=== PATIENT | male | born 1930 | race Caucasian/White ===

== ENCOUNTER 2021-01-26 03:41 | Inpatient (IN) ==
[2021-01-26] MEDS ORDERED: FUROSEMIDE 100 MG/10 ML VIAL IV STA (04:29)
[2021-01-26] MEDS ORDERED: ONDANSETRON 4 MG/2 ML VIAL IV STA (04:29)
[2021-01-26 05:42] LABS: INR 1.2; PT Patient Result 12.8 SECS (10.5-12.0)
[2021-01-26 06:00] LABS: Albumin 2.2 G/DL (3.4-5.0); Bilirubin,Total 0.5 MG/DL (0.20-1.00); Calcium 8.8 MG/DL (8.5-10.1); Osmolality,Calculated 282.5 MOS/KG (273-304); Potassium 3.6 MMOL/L (3.5-5.1); Total Protein 5.2 G/DL (6.4-8.2)
[2021-01-26 06:17] LABS: Hematocrit 26.6 VOL% (42.0-52.0); Hemoglobin 8.7 GM/DL (14.0-18.0); Immature Granulocytes % 7.5 %; Immature Granulocytes Absolute 0.07 #; Lymphocytes # 0.1 10*3/uL (1.4-4.0); Lymphocytes % 12.9 % (21.2-54.2); Mean Corpuscular HGB Conc 32.7 GM/DL (32-36); Neutrophils % 65.6 % (38.7-73.9); Red Blood Count 3.13 MC/CUMM (3.8-5.5); Red Cell Distribution Width 16.4 % (9.3-17.3)
[2021-01-26 06:21] LABS: White Blood Count 0.9 T/CUMM (4-12)
[2021-01-26 06:22] LABS: Platelet Count 35 T/CUMM (130-400)
[2021-01-26 06:28] LABS: Amorphous Crystals,Urine Moderate /HPF (Few); Bilirubin,Urine Negative (Negative); Blood, Urine Negative (Negative); Glucose,Urine (UA) Negative (Negative); Ketones,Urine Negative (Negative); Mucus,Urine Occasional /LPF (Occasional); Nitrite,Urine Negative (Negative); Protein,Urine Negative; Urine Appearance CLEAR (Clear); Urine Color Yellow (Yellow); Urine Specific Gravity 1.009 (1.001-1.035); Urine Urobilinogen < 2.0 EU/DL (0.2-1.0)
[2021-01-26 06:43] LABS: Band Neutrophils 1 % (0-10); Eosinophils 1 % (0-10); Hypochromasia Slight; Lymphocytes 9 % (20-55); Platelet Estimate Decreased; Segmented Neutrophils 79 % (50-85); Total Cells Counted 100
[2021-01-26] MEDS ORDERED: ONDANSETRON 4 MG/2 ML VIAL IV PRN (10:32)
[2021-01-26] MEDS ORDERED: GLUCAGON 1 MG VIAL IM PRN (10:32)
[2021-01-26] MEDS ORDERED: DEXTROSE 50% 25 GM/50 ML VIAL IV PRN (10:32)
[2021-01-26] MEDS: carvediloL 3.125 MG TABLET PO SCH (17:05)
[2021-01-26] MEDS: FUROSEMIDE 40 MG/4 ML VIAL IV SCH (17:06)
[2021-01-26] MEDS: ALBUMIN 25% 12.5 GM/50 ML VIAL IV SCH (21:48)
[2021-01-27] MEDS: ACETAMINOPHEN 325 MG TABLET PO PRN ×2 (01:37→16:08)
[2021-01-27 05:56] LABS: Immature Granulocytes % 6.7 %; Immature Granulocytes Absolute 0.07 #; Lymphocytes # 0.1 10*3/uL (1.4-4.0); Lymphocytes % 7.7 % (21.2-54.2); Mean Corpuscular HGB Conc 33.5 GM/DL (32-36); Mean Corpuscular Volume 84.8 FL (87-102); Neutrophils % 61.6 % (38.7-73.9); Red Cell Distribution Width 16.5 % (9.3-17.3)
[2021-01-27 06:03] LABS: Alanine Aminotransferase 46 U/L (16-61); Alkaline Phosphatase 172 U/L (45-117); Aspartate Amino Transferase 77 U/L (0-37); Blood Urea Nitrogen 58 MG/DL (7-18); Calcium 8.3 MG/DL (8.5-10.1); Carbon Dioxide 22 MMOL/L (21-32); Estimated Glom Filtration Rate 20 ML/MIN; Glucose 98 MG/DL (74-106); HDL Cholesterol < 10 MG/DL (40-60); Osmolality,Calculated 281.4 MOS/KG (273-304); Potassium 3.4 MMOL/L (3.5-5.1); Sodium 133 MMOL/L (136-145); Total Protein 4.6 G/DL (6.4-8.2); Triglycerides 204 MG/DL (2-150); VLDL Cholesterol 40.8 MG/DL
[2021-01-27 06:08] LABS: Red Blood Count 2.11 MC/CUMM (3.8-5.5)
[2021-01-27 06:10] LABS: Hematocrit 17.9 VOL% (42.0-52.0); Platelet Count 37 T/CUMM (130-400)
[2021-01-27 06:20] LABS: Hypochromasia 2+; Lymphocytes 6 % (20-55); Microcytosis 1+; Platelet Estimate Decreased; Segmented Neutrophils 81 % (50-85); Total Cells Counted 100
[2021-01-27] MEDS ORDERED: SODIUM CHLORIDE 0.9% 1,000 ML IV PRN (06:27)
[2021-01-27] MEDS ORDERED: POTASSIUM CHLORIDE 10 MEQ TABLET PO ONE (09:05)
[2021-01-27 09:38] LABS: % Iron Saturation 25.7 % (18-50)
[2021-01-27] MEDS: ERGOCALCIFEROL 50,000 UNIT CAPSULE PO SCH (09:39)
[2021-01-27] MEDS: PANTOPRAZOLE 40 MG TABLET PO SCH (09:39)
[2021-01-27] MEDS: FINASTERIDE 5 MG TABLET PO SCH (09:39)
[2021-01-27] MEDS: carvediloL 3.125 MG TABLET PO SCH ×2 (09:39→16:08)
[2021-01-27] MEDS: amLODIPine 5 MG TABLET PO SCH (09:42)
[2021-01-27] MEDS: FUROSEMIDE 40 MG/4 ML VIAL IV SCH ×2 (09:44→16:09)
[2021-01-27 09:45] LABS: Folate 10.15 NG/ML (5.38-24.0)
[2021-01-27] MEDS: ALBUMIN 25% 12.5 GM/50 ML VIAL IV SCH ×2 (09:54→21:56)
[2021-01-27 21:36] LABS: Hematocrit 22.6 VOL% (42.0-52.0)
[2021-01-27 21:39] LABS: Hemoglobin 7.5 GM/DL (14.0-18.0)
[2021-01-28] MEDS: ACETAMINOPHEN 325 MG TABLET PO PRN ×2 (02:11→16:01)
[2021-01-28 05:41] LABS: Hemoglobin 7.7 GM/DL (14.0-18.0); Immature Granulocytes % 20.7 %; Immature Granulocytes Absolute 0.29 #; Lymphocytes # 0.1 10*3/uL (1.4-4.0); Lymphocytes % 5.7 % (21.2-54.2); Mean Corpuscular HGB Conc 33.5 GM/DL (32-36); Mean Corpuscular Volume 83.9 FL (87-102); Monocytes % 21.4 % (1.7-12.7); Neutrophils % 52.2 % (38.7-73.9); Red Cell Distribution Width 16.6 % (9.3-17.3)
[2021-01-28 06:06] LABS: Calcium 8.4 MG/DL (8.5-10.1); Osmolality,Calculated 285.2 MOS/KG (273-304); Potassium 3.2 MMOL/L (3.5-5.1)
[2021-01-28 06:22] LABS: Platelet Count 40 T/CUMM (130-400); Red Blood Count 2.74 MC/CUMM (3.8-5.5); White Blood Count 1.4 T/CUMM (4-12)
[2021-01-28 06:29] LABS: Band Neutrophils 2 % (0-10); Hypochromasia 1+; Lymphocytes 5 % (20-55); Microcytosis 1+; Ovalocytes Slight; Platelet Estimate Decreased; Segmented Neutrophils 74 % (50-85); Total Cells Counted 100
[2021-01-28] MEDS: FINASTERIDE 5 MG TABLET PO SCH (08:27)
[2021-01-28] MEDS: PANTOPRAZOLE 40 MG TABLET PO SCH (08:27)
[2021-01-28] MEDS: carvediloL 3.125 MG TABLET PO SCH ×2 (08:28→16:01)
[2021-01-28] MEDS: FUROSEMIDE 40 MG/4 ML VIAL IV SCH ×2 (08:28→16:01)
[2021-01-28] MEDS: amLODIPine 5 MG TABLET PO SCH (08:28)
[2021-01-28] MEDS: ALBUMIN 25% 12.5 GM/50 ML VIAL IV SCH (08:28)
[2021-01-28] MEDS ORDERED: POTASSIUM CHLORIDE 10 MEQ TABLET PO ONE (09:13)
[2021-01-28] MEDS ORDERED: CIPROFLOXACIN 250 MG TABLET PO SCH (21:00)
[2021-01-29] MEDS: ACETAMINOPHEN 325 MG TABLET PO PRN ×4 (00:24→23:40)
[2021-01-29 05:50] LABS: Basophils % 0.6 % (0.0-0.8); Hematocrit 23.8 VOL% (42.0-52.0); Hemoglobin 8.1 GM/DL (14.0-18.0); Immature Granulocytes % 1.8 %; Immature Granulocytes Absolute 0.03 #; Lymphocytes # 0.1 10*3/uL (1.4-4.0); Lymphocytes % 4.9 % (21.2-54.2); Mean Corpuscular Volume 84.4 FL (87-102); Monocytes % 22.1 % (1.7-12.7); Neutrophils % 70.6 % (38.7-73.9); Red Blood Count 2.82 MC/CUMM (3.8-5.5); Red Cell Distribution Width 16.5 % (9.3-17.3); White Blood Count 1.6 T/CUMM (4-12)
[2021-01-29 06:10] LABS: Platelet Count 36 T/CUMM (130-400)
[2021-01-29 06:19] LABS: Calcium 8.4 MG/DL (8.5-10.1); Osmolality,Calculated 284.4 MOS/KG (273-304); Potassium 3.3 MMOL/L (3.5-5.1)
[2021-01-29 06:21] LABS: Band Neutrophils 2 % (0-10); Lymphocytes 1 % (20-55); Platelet Estimate Decreased; Segmented Neutrophils 80 % (50-85); Total Cells Counted 100
[2021-01-29 06:22] LABS: Hypochromasia 1+; Microcytosis 1+; Ovalocytes Slight
[2021-01-29] MEDS ORDERED: POTASSIUM CHLORIDE 20 MEQ TABLET PO ONE (07:59)
[2021-01-29] MEDS ORDERED: HEPARIN 5,000 UNIT/1 ML VIAL ONE (09:12)
[2021-01-29] MEDS: FUROSEMIDE 40 MG/4 ML VIAL IV SCH ×2 (10:24→15:13)
[2021-01-29] MEDS: FINASTERIDE 5 MG TABLET PO SCH (10:25)
[2021-01-29] MEDS: amLODIPine 5 MG TABLET PO SCH (10:25)
[2021-01-29] MEDS: carvediloL 3.125 MG TABLET PO SCH ×2 (10:26→16:28)
[2021-01-29] MEDS: PANTOPRAZOLE 40 MG TABLET PO SCH (10:26)
[2021-01-29] MEDS ORDERED: POTASSIUM CHLORIDE 10 MEQ TABLET PO ONE (11:00)
[2021-01-29] MEDS ORDERED: ALBUTEROL/IPRATROPIUM 3 ML NEB RESP TX STA (11:54)
[2021-01-29] MEDS ORDERED: ALBUTEROL/IPRATROPIUM 3 ML NEB RESP TX PRN (11:55)
[2021-01-29] MEDS: LEVOFLOXACIN INJ 750 MG/150 ML PREMIX IV SCH (15:13)
[2021-01-30] MEDS: ACETAMINOPHEN 325 MG TABLET PO PRN ×3 (04:22→19:59)
[2021-01-30] MEDS ORDERED: PIPERACILLIN/TAZOBACTAM 3,375 MG in SODIUM CHLORIDE 0.9% 100 ML IV SCH (08:00)
[2021-01-30 08:25] LABS: Hematocrit 24.7 VOL% (42.0-52.0); Hemoglobin 8.1 GM/DL (14.0-18.0); Immature Granulocytes Absolute 0.09 #; Lymphocytes # 0.1 10*3/uL (1.4-4.0); Lymphocytes % 4.9 % (21.2-54.2); Mean Corpuscular HGB Conc 32.8 GM/DL (32-36); Mean Corpuscular Volume 84.3 FL (87-102); Monocytes % 18.7 % (1.7-12.7); Neutrophils % 72.4 % (38.7-73.9); Platelet Count 40 T/CUMM (130-400); Red Blood Count 2.93 MC/CUMM (3.8-5.5); Red Cell Distribution Width 16.6 % (9.3-17.3); White Blood Count 2.3 T/CUMM (4-12)
[2021-01-30 08:46] LABS: Calcium 8.1 MG/DL (8.5-10.1); Osmolality,Calculated 290.1 MOS/KG (273-304); Potassium 3.8 MMOL/L (3.5-5.1)
[2021-01-30 08:50] LABS: Band Neutrophils 3 % (0-10); Hypochromasia 1+; Lymphocytes 2 % (20-55); Metamyelocytes 1 %; Segmented Neutrophils 81 % (50-85); Total Cells Counted 100
[2021-01-30 08:51] LABS: Microcytosis 1+; Ovalocytes Slight; Platelet Estimate Decreased
[2021-01-30] MEDS: FUROSEMIDE 40 MG/4 ML VIAL IV SCH ×2 (09:25→17:03)
[2021-01-30] MEDS: POTASSIUM CHLORIDE 10 MEQ TABLET PO SCH (09:25)
[2021-01-30] MEDS: FINASTERIDE 5 MG TABLET PO SCH (09:26)
[2021-01-30] MEDS: carvediloL 3.125 MG TABLET PO SCH ×2 (09:26→17:03)
[2021-01-30] MEDS: amLODIPine 5 MG TABLET PO SCH (09:26)
[2021-01-30] MEDS: PANTOPRAZOLE 40 MG TABLET PO SCH (09:26)
[2021-01-30] MEDS ORDERED: VANCOMYCIN INJ 1,250 MG in SODIUM CHLORIDE 0.9% 250 ML IV ONE (11:00)
[2021-01-30] MEDS: MORPHINE 2 MG/1 ML SYRINGE IV PRN ×2 (12:17→19:54)
[2021-01-30] MEDS ORDERED: VANCOMYCIN INJ 1,250 MG in SODIUM CHLORIDE 0.9% 250 ML IV PRN (12:44)
[2021-01-30] MEDS ORDERED: LACTULOSE 20 GM/30 ML UDCUP PO PRN (16:06)
[2021-01-30] MEDS: DOCUSATE SODIUM 100 MG/10 ML UDCUP PO SCH (20:01)
[2021-01-31] MEDS: MORPHINE 2 MG/1 ML SYRINGE IV PRN ×3 (00:59→20:49)
[2021-01-31 05:40] LABS: Hematocrit 23.7 VOL% (42.0-52.0); Immature Granulocytes Absolute 0.04 #; Lymphocytes # 0.1 10*3/uL (1.4-4.0); Lymphocytes % 4.6 % (21.2-54.2); Mean Corpuscular HGB Conc 33.8 GM/DL (32-36); Monocytes % 21.8 % (1.7-12.7); Neutrophils % 71.6 % (38.7-73.9); Red Blood Count 2.82 MC/CUMM (3.8-5.5); Red Cell Distribution Width 16.9 % (9.3-17.3)
[2021-01-31 05:49] LABS: Platelet Count 36 T/CUMM (130-400)
[2021-01-31 05:58] LABS: Calcium 8.2 MG/DL (8.5-10.1); Potassium 3.8 MMOL/L (3.5-5.1)
[2021-01-31 06:04] LABS: Band Neutrophils 1 % (0-10); Hypochromasia 1+; Lymphocytes 4 % (20-55); Microcytosis 1+; Ovalocytes Slight; Platelet Estimate Decreased; Segmented Neutrophils 80 % (50-85); Target Cells Slight; Total Cells Counted 100
[2021-01-31] MEDS: POTASSIUM CHLORIDE 10 MEQ TABLET PO SCH (09:55)
[2021-01-31] MEDS: DOCUSATE SODIUM 100 MG/10 ML UDCUP PO SCH ×2 (09:55→20:49)
[2021-01-31] MEDS: carvediloL 3.125 MG TABLET PO SCH ×2 (09:55→17:17)
[2021-01-31] MEDS: FUROSEMIDE 40 MG/4 ML VIAL IV SCH ×2 (09:56→15:32)
[2021-01-31] MEDS: PANTOPRAZOLE 40 MG TABLET PO SCH (09:56)
[2021-01-31] MEDS: FINASTERIDE 5 MG TABLET PO SCH (09:56)
[2021-01-31] MEDS: amLODIPine 5 MG TABLET PO SCH (09:56)
[2021-01-31] MEDS ORDERED: VANCOMYCIN INJ 1,250 MG in SODIUM CHLORIDE 0.9% 250 ML IV ONE (15:00)
[2021-01-31] MEDS: LEVOFLOXACIN INJ 750 MG/150 ML PREMIX IV SCH (15:32)
[2021-01-31] MEDS: methylPREDNISolone SOD SUC 40 MG/1 ML VIAL IV SCH (17:17)
[2021-01-31] MEDS: ALBUTEROL/IPRATROPIUM 3 ML NEB RESP TX SCH ×2 (21:50)
[2021-02-01] MEDS: ALBUTEROL/IPRATROPIUM 3 ML NEB RESP TX SCH ×6 (03:00→23:00)
[2021-02-01] MEDS: methylPREDNISolone SOD SUC 40 MG/1 ML VIAL IV SCH ×2 (04:54→16:55)
[2021-02-01 05:01] LABS: Hematocrit 23.8 VOL% (42.0-52.0); Hemoglobin 7.9 GM/DL (14.0-18.0); Immature Granulocytes % 2.8 %; Immature Granulocytes Absolute 0.04 #; Lymphocytes # 0.1 10*3/uL (1.4-4.0); Lymphocytes % 3.4 % (21.2-54.2); Mean Corpuscular HGB Conc 33.2 GM/DL (32-36); Mean Corpuscular Volume 85.3 FL (87-102); Monocytes % 18.6 % (1.7-12.7); NRBC # 0.02 10*3/uL; Neutrophils % 75.2 % (38.7-73.9); Red Blood Count 2.79 MC/CUMM (3.8-5.5); White Blood Count 1.5 T/CUMM (4-12)
[2021-02-01 05:27] LABS: Osmolality,Calculated 297.2 MOS/KG (273-304); Potassium 4.1 MMOL/L (3.5-5.1)
[2021-02-01 05:34] LABS: Platelet Count 33 T/CUMM (130-400)
[2021-02-01 05:38] LABS: Hypochromasia 1+; Lymphocytes 5 % (20-55); Microcytosis 1+; Ovalocytes Slight; Platelet Estimate Decreased; Segmented Neutrophils 84 % (50-85); Total Cells Counted 100
[2021-02-01] MEDS: PANTOPRAZOLE 40 MG TABLET PO SCH (08:07)
[2021-02-01] MEDS: carvediloL 3.125 MG TABLET PO SCH ×2 (08:07→16:52)
[2021-02-01] MEDS: DOCUSATE SODIUM 100 MG/10 ML UDCUP PO SCH ×2 (08:07→23:11)
[2021-02-01] MEDS: FINASTERIDE 5 MG TABLET PO SCH (08:07)
[2021-02-01] MEDS: POTASSIUM CHLORIDE 10 MEQ TABLET PO SCH (08:07)
[2021-02-01] MEDS: amLODIPine 5 MG TABLET PO SCH (08:08)
[2021-02-01] MEDS: FUROSEMIDE 40 MG/4 ML VIAL IV SCH ×2 (08:08→16:52)
[2021-02-01] MEDS ORDERED: SODIUM CHLORIDE 0.9% 1,000 ML IV PRN (08:10)
[2021-02-01] MEDS: LEVOTHYROXINE 50 MCG TABLET PO SCH (09:42)
[2021-02-01] MEDS: VANCOMYCIN INJ 1,250 MG in SODIUM CHLORIDE 0.9% 250 ML IV SCH (14:31)
[2021-02-02] MEDS: ALBUTEROL/IPRATROPIUM 3 ML NEB RESP TX SCH ×6 (03:00→23:25)
[2021-02-02 05:15] LABS: Hematocrit 21.9 VOL% (42.0-52.0); Hemoglobin 7.2 GM/DL (14.0-18.0); Immature Granulocytes % 10.4 %; Immature Granulocytes Absolute 0.12 #; Lymphocytes # 0.1 10*3/uL (1.4-4.0); Lymphocytes % 4.3 % (21.2-54.2); Mean Corpuscular HGB Conc 32.9 GM/DL (32-36); Mean Corpuscular Volume 84.2 FL (87-102); Monocytes % 11.3 % (1.7-12.7); Platelet Count 46 T/CUMM (130-400); Red Cell Distribution Width 17.1 % (9.3-17.3); White Blood Count 1.2 T/CUMM (4-12)
[2021-02-02 05:35] LABS: Calcium 7.9 MG/DL (8.5-10.1); Osmolality,Calculated 293.5 MOS/KG (273-304); Potassium 3.9 MMOL/L (3.5-5.1)
[2021-02-02] MEDS: methylPREDNISolone SOD SUC 40 MG/1 ML VIAL IV SCH ×2 (05:43→20:27)
[2021-02-02 06:07] LABS: Band Neutrophils 1 % (0-10); Hypochromasia 1+; Lymphocytes 5 % (20-55); Segmented Neutrophils 84 % (50-85); Total Cells Counted 100
[2021-02-02 06:08] LABS: Microcytosis 1+; Ovalocytes Few; Platelet Estimate Decreased
[2021-02-02 07:16] LABS: Albumin 1.9 G/DL (3.4-5.0); Bilirubin,Direct 0.13 MG/DL (0.0-0.20); Bilirubin,Indirect 1.2 MG/DL (0.0-1.0); Bilirubin,Total 1.3 MG/DL (0.20-1.00); Total Protein 4.7 G/DL (6.4-8.2)
[2021-02-02 07:59] LABS: Hepatitis B Core IgM Quant 0.13 Index; Hepatitis B Surface Ag Quant < 0.10 Index; Hepatitis B Surface Ag Result Non-Reactive (NonReactive); Hepatitis C Virus Ab Quant < 0.02 Index; Hepatitis C Virus Ab Result Non-Reactive (NonReactive)
[2021-02-02] MEDS ORDERED: BISACODYL 10 MG SUPP RECTAL ONE (09:00)
[2021-02-02] MEDS ORDERED: LACTATED RINGERS 1,000 ML IV SCH (11:30)
[2021-02-02] MEDS ORDERED: propofoL 200 MG/20 ML VIAL IV ONE (11:50)
[2021-02-02] MEDS ORDERED: LIDOCAINE 2% 5 ML VIAL ONE (11:50)
[2021-02-02] MEDS: FUROSEMIDE 40 MG/4 ML VIAL IV SCH ×2 (12:54→20:27)
[2021-02-02] MEDS: DOCUSATE SODIUM 100 MG/10 ML UDCUP PO SCH ×2 (12:54→20:27)
[2021-02-02] MEDS: PANTOPRAZOLE 40 MG TABLET PO SCH (12:55)
[2021-02-02] MEDS: carvediloL 3.125 MG TABLET PO SCH ×2 (12:55→18:09)
[2021-02-02] MEDS: LEVOTHYROXINE 50 MCG TABLET PO SCH (12:55)
[2021-02-02] MEDS: FINASTERIDE 5 MG TABLET PO SCH (12:55)
[2021-02-02] MEDS: POTASSIUM CHLORIDE 10 MEQ TABLET PO SCH (12:55)
[2021-02-02] MEDS: amLODIPine 5 MG TABLET PO SCH (12:55)
[2021-02-02] MEDS ORDERED: SODIUM CHLORIDE 0.9% 1,000 ML IV PRN (13:02)
[2021-02-02] MEDS: ACETAMINOPHEN 325 MG TABLET PO PRN (20:27)
[2021-02-03] MEDS: LEVOFLOXACIN INJ 750 MG/150 ML PREMIX IV SCH (00:45)
[2021-02-03] MEDS: ACETAMINOPHEN 325 MG TABLET PO PRN ×3 (02:06→21:59)
[2021-02-03 02:18] LABS: Hematocrit 28.8 VOL% (42.0-52.0); Hemoglobin 9.4 GM/DL (14.0-18.0)
[2021-02-03] MEDS: VANCOMYCIN INJ 1,250 MG in SODIUM CHLORIDE 0.9% 250 ML IV SCH (02:47)
[2021-02-03] MEDS: ALBUTEROL/IPRATROPIUM 3 ML NEB RESP TX SCH ×6 (03:12→23:44)
[2021-02-03] MEDS: methylPREDNISolone SOD SUC 40 MG/1 ML VIAL IV SCH (04:13)
[2021-02-03 06:46] LABS: Hematocrit 29.1 VOL% (42.0-52.0); Hemoglobin 9.7 GM/DL (14.0-18.0); Immature Granulocytes % 5.9 %; Immature Granulocytes Absolute 0.08 #; Mean Corpuscular HGB Conc 33.3 GM/DL (32-36); Mean Corpuscular Volume 85.3 FL (87-102); Monocytes % 11.9 % (1.7-12.7); Neutrophils % 79.2 % (38.7-73.9); Red Blood Count 3.41 MC/CUMM (3.8-5.5); Red Cell Distribution Width 16.5 % (9.3-17.3); White Blood Count 1.4 T/CUMM (4-12)
[2021-02-03 06:47] LABS: Platelet Count 38 T/CUMM (130-400)
[2021-02-03 07:04] LABS: Calcium 7.9 MG/DL (8.5-10.1); Osmolality,Calculated 287.5 MOS/KG (273-304)
[2021-02-03 08:45] LABS: Band Neutrophils 10 % (0-10); Lymphocytes 1 % (20-55); Platelet Estimate Decreased; Segmented Neutrophils 80 % (50-85); Total Cells Counted 100
[2021-02-03 08:46] LABS: Anisocytosis 2+; Ovalocytes Few
[2021-02-03] MEDS: carvediloL 3.125 MG TABLET PO SCH ×2 (09:29→16:05)
[2021-02-03] MEDS: FUROSEMIDE 40 MG/4 ML VIAL IV SCH ×2 (09:29→16:05)
[2021-02-03] MEDS: POTASSIUM CHLORIDE 10 MEQ TABLET PO SCH (09:30)
[2021-02-03] MEDS: ERGOCALCIFEROL 50,000 UNIT CAPSULE PO SCH (09:30)
[2021-02-03] MEDS: PANTOPRAZOLE 40 MG TABLET PO SCH (09:30)
[2021-02-03] MEDS: amLODIPine 5 MG TABLET PO SCH (09:30)
[2021-02-03] MEDS: DOCUSATE SODIUM 100 MG/10 ML UDCUP PO SCH ×2 (09:30→22:06)
[2021-02-03] MEDS: POLYETHYLENE GLYCOL POWDER 17 GM PACK PO SCH (09:30)
[2021-02-03] MEDS: LEVOTHYROXINE 50 MCG TABLET PO SCH (09:31)
[2021-02-03] MEDS: FINASTERIDE 5 MG TABLET PO SCH (09:31)
[2021-02-03] MEDS ORDERED: BISACODYL 10 MG SUPP RECTAL PRN (17:19)
[2021-02-04] MEDS: ALBUTEROL/IPRATROPIUM 3 ML NEB RESP TX SCH ×5 (03:09→20:08)
[2021-02-04 06:37] LABS: Hemoglobin 10.3 GM/DL (14.0-18.0); Immature Granulocytes Absolute 0.06 #; Mean Corpuscular HGB Conc 33.2 GM/DL (32-36); Mean Corpuscular Volume 84.7 FL (87-102); Red Blood Count 3.66 MC/CUMM (3.8-5.5); Red Cell Distribution Width 16.9 % (9.3-17.3)
[2021-02-04 06:46] LABS: Platelet Count 25 T/CUMM (130-400)
[2021-02-04] MEDS ORDERED: SODIUM CHLORIDE 0.9% 1,000 ML IV PRN ×2 (06:51→07:21)
[2021-02-04 07:03] LABS: Calcium 8.1 MG/DL (8.5-10.1); Osmolality,Calculated 289.4 MOS/KG (273-304); Potassium 4.2 MMOL/L (3.5-5.1)
[2021-02-04 07:47] LABS: Anisocytosis 2+; Band Neutrophils 16 % (0-10); Burr Cells Few; Ovalocytes Few; Platelet Estimate Decreased; Poikilocytosis 1+; Segmented Neutrophils 78 % (50-85); Tear Drop Cells Few; Total Cells Counted 100
[2021-02-04 07:48] LABS: Target Cells Few
[2021-02-04] MEDS ORDERED: methylPREDNISolone SOD SUC 40 MG/1 ML VIAL IV SCH ×2 (09:00→14:00)
[2021-02-04] MEDS: FLUCONAZOLE 100 MG TABLET PO SCH (09:22)
[2021-02-04] MEDS: ACETAMINOPHEN 325 MG TABLET PO PRN (09:22)
[2021-02-04] MEDS: POTASSIUM CHLORIDE 10 MEQ TABLET PO SCH (09:22)
[2021-02-04] MEDS: FINASTERIDE 5 MG TABLET PO SCH (09:22)
[2021-02-04] MEDS: PANTOPRAZOLE 40 MG TABLET PO SCH (09:22)
[2021-02-04] MEDS: LEVOTHYROXINE 50 MCG TABLET PO SCH (09:23)
[2021-02-04] MEDS: carvediloL 3.125 MG TABLET PO SCH ×2 (09:23→16:15)
[2021-02-04] MEDS: FUROSEMIDE 40 MG/4 ML VIAL IV SCH ×2 (09:23→15:19)
[2021-02-04] MEDS: DOCUSATE SODIUM 100 MG/10 ML UDCUP PO SCH ×3 (09:23→21:38)
[2021-02-04] MEDS: POLYETHYLENE GLYCOL POWDER 17 GM PACK PO SCH (09:23)
[2021-02-04] MEDS: amLODIPine 5 MG TABLET PO SCH (11:05)
[2021-02-04] MEDS ORDERED: methylPREDNISolone SOD SUC 125 MG/2 ML VIAL IV ONE (13:49)
[2021-02-04] MEDS ORDERED: PIPERACILLIN/TAZOBACTAM 3,375 MG in SODIUM CHLORIDE 0.9% 100 ML IV SCH (14:00)
[2021-02-04] MEDS: FAMOTIDINE 20 MG/2 ML VIAL IV SCH (14:33)
[2021-02-04] MEDS: CEFEPIME 1,000 MG in SODIUM CHLORIDE 0.9% 100 ML IV SCH (14:33)
[2021-02-04 14:49] LABS: Hematocrit 29.7 VOL% (42.0-52.0); Hemoglobin 9.7 GM/DL (14.0-18.0); Immature Granulocytes % 5.7 %; Immature Granulocytes Absolute 0.05 #; Lymphocytes # 0.1 10*3/uL (1.4-4.0); Lymphocytes % 5.7 % (21.2-54.2); Mean Corpuscular HGB Conc 32.7 GM/DL (32-36); Mean Corpuscular Volume 85.3 FL (87-102); Neutrophils % 80.6 % (38.7-73.9); Red Blood Count 3.48 MC/CUMM (3.8-5.5); Red Cell Distribution Width 16.9 % (9.3-17.3)
[2021-02-04 14:57] LABS: Platelet Count 29 T/CUMM (130-400); White Blood Count 0.9 T/CUMM (4-12)
[2021-02-04] MEDS: VANCOMYCIN INJ 1,250 MG in SODIUM CHLORIDE 0.9% 250 ML IV SCH (15:20)
[2021-02-04] MEDS ORDERED: FILGRASTIM-SNDZ 300 MCG/0.5 ML SYRINGE SUBCUT ONE (15:29)
[2021-02-04 15:55] LABS: Anisocytosis 2+; Ovalocytes 1+; Poikilocytosis 1+; Segmented Neutrophils 32 % (50-85); Total Cells Counted 32
[2021-02-04 15:56] LABS: Platelet Estimate Adequate
[2021-02-04] MEDS: ACETAMINOPHEN 500 MG TABLET PO SCH (18:10)
[2021-02-04] MEDS: methylPREDNISolone SOD SUC 40 MG/1 ML VIAL IV SCH (21:28)
[2021-02-05] MEDS: ALBUTEROL/IPRATROPIUM 3 ML NEB RESP TX SCH ×7 (00:35→23:00)
[2021-02-05] MEDS: FAMOTIDINE 20 MG/2 ML VIAL IV SCH ×2 (02:10→13:12)
[2021-02-05] MEDS: CEFEPIME 1,000 MG in SODIUM CHLORIDE 0.9% 100 ML IV SCH ×2 (02:10→20:01)
[2021-02-05] MEDS: methylPREDNISolone SOD SUC 40 MG/1 ML VIAL IV SCH ×4 (02:10→20:00)
[2021-02-05] MEDS: ACETAMINOPHEN 500 MG TABLET PO SCH ×3 (02:11→13:14)
[2021-02-05 06:06] LABS: Hematocrit 31.7 VOL% (42.0-52.0); Hemoglobin 10.5 GM/DL (14.0-18.0); Immature Granulocytes % 11.9 %; Immature Granulocytes Absolute 0.23 #; Lymphocytes # 0.1 10*3/uL (1.4-4.0); Lymphocytes % 3.1 % (21.2-54.2); Mean Corpuscular HGB Conc 33.1 GM/DL (32-36); Mean Corpuscular Volume 86.4 FL (87-102); Monocytes % 5.7 % (1.7-12.7); Neutrophils % 79.3 % (38.7-73.9); Red Blood Count 3.67 MC/CUMM (3.8-5.5); Red Cell Distribution Width 17.2 % (9.3-17.3); White Blood Count 1.9 T/CUMM (4-12)
[2021-02-05 06:40] LABS: Platelet Count 24 T/CUMM (130-400)
[2021-02-05 06:48] LABS: Band Neutrophils 5 % (0-10); Hypochromasia Slight; Lymphocytes 2 % (20-55); Microcytosis Slight; Ovalocytes Slight; Platelet Estimate Decreased; Segmented Neutrophils 90 % (50-85); Total Cells Counted 100
[2021-02-05 06:48] LABS: Calcium 8.1 MG/DL (8.5-10.1); Osmolality,Calculated 290.5 MOS/KG (273-304); Potassium 4.5 MMOL/L (3.5-5.1)
[2021-02-05] MEDS ORDERED: SODIUM CHLORIDE 0.9% 1,000 ML IV PRN (06:49)
[2021-02-05] MEDS: FUROSEMIDE 40 MG/4 ML VIAL IV SCH (10:29)
[2021-02-05] MEDS: amLODIPine 5 MG TABLET PO SCH (10:39)
[2021-02-05] MEDS: POTASSIUM CHLORIDE 10 MEQ TABLET PO SCH (10:39)
[2021-02-05] MEDS: DOCUSATE SODIUM 100 MG/10 ML UDCUP PO SCH ×2 (10:40→20:00)
[2021-02-05] MEDS: FINASTERIDE 5 MG TABLET PO SCH (10:40)
[2021-02-05] MEDS: LEVOTHYROXINE 50 MCG TABLET PO SCH (10:40)
[2021-02-05] MEDS: carvediloL 3.125 MG TABLET PO SCH ×2 (10:40→17:55)
[2021-02-05] MEDS: FLUCONAZOLE 100 MG TABLET PO SCH (10:40)
[2021-02-05] MEDS: POLYETHYLENE GLYCOL POWDER 17 GM PACK PO SCH (10:41)
[2021-02-05] MEDS: FUROSEMIDE 80 MG TABLET PO SCH (13:07)
[2021-02-05] MEDS: ACETAMINOPHEN 325 MG TABLET PO PRN (19:47)
[2021-02-06 01:18] LABS: Hematocrit 28.4 VOL% (42.0-52.0); Hemoglobin 9.4 GM/DL (14.0-18.0); Immature Granulocytes % 16.2 %; Immature Granulocytes Absolute 0.16 #; Mean Corpuscular HGB Conc 33.1 GM/DL (32-36); Mean Corpuscular Volume 85.3 FL (87-102); Neutrophils % 77.8 % (38.7-73.9); Red Blood Count 3.33 MC/CUMM (3.8-5.5); Red Cell Distribution Width 17.1 % (9.3-17.3)
[2021-02-06 01:25] LABS: Platelet Count 21 T/CUMM (130-400)
[2021-02-06 01:33] LABS: Bilirubin,Total 1.1 MG/DL (0.20-1.00); Calcium 7.9 MG/DL (8.5-10.1); Osmolality,Calculated 291.7 MOS/KG (273-304); Potassium 4.7 MMOL/L (3.5-5.1); Total Protein 4.6 G/DL (6.4-8.2)
[2021-02-06] MEDS: FAMOTIDINE 20 MG/2 ML VIAL IV SCH ×2 (02:35→13:39)
[2021-02-06] MEDS: methylPREDNISolone SOD SUC 40 MG/1 ML VIAL IV SCH ×4 (02:35→20:23)
[2021-02-06] MEDS: ALBUTEROL/IPRATROPIUM 3 ML NEB RESP TX SCH ×5 (03:00→20:25)
[2021-02-06 03:42] LABS: Platelet Estimate Decreased; Segmented Neutrophils 100 % (50-85); Total Cells Counted 100
[2021-02-06 03:44] LABS: Anisocytosis 1+; Microcytosis 1+; Ovalocytes Few; Polychromasia Slight
[2021-02-06 03:45] LABS: Schistocytes Few
[2021-02-06] MEDS ORDERED: SODIUM CHLORIDE 0.9% 1,000 ML IV PRN (04:21)
[2021-02-06] MEDS: POLYETHYLENE GLYCOL POWDER 17 GM PACK PO SCH (08:35)
[2021-02-06] MEDS: POTASSIUM CHLORIDE 10 MEQ TABLET PO SCH (08:37)
[2021-02-06] MEDS: DOCUSATE SODIUM 100 MG/10 ML UDCUP PO SCH ×2 (08:37→20:23)
[2021-02-06] MEDS: FINASTERIDE 5 MG TABLET PO SCH (08:38)
[2021-02-06] MEDS: amLODIPine 5 MG TABLET PO SCH (08:38)
[2021-02-06] MEDS: LEVOTHYROXINE 50 MCG TABLET PO SCH (08:38)
[2021-02-06] MEDS: FLUCONAZOLE 100 MG TABLET PO SCH (08:38)
[2021-02-06] MEDS: carvediloL 3.125 MG TABLET PO SCH ×2 (08:38→18:36)
[2021-02-06] MEDS: FUROSEMIDE 80 MG TABLET PO SCH (08:38)
[2021-02-06] MEDS: CEFEPIME 1,000 MG in SODIUM CHLORIDE 0.9% 100 ML IV SCH (10:13)
[2021-02-06] MEDS: CEFTAROLINE 300 MG in SODIUM CHLORIDE 0.9% 100 ML IV SCH ×2 (11:57→20:54)
[2021-02-06] MEDS ORDERED: VANCOMYCIN INJ 1,250 MG in SODIUM CHLORIDE 0.9% 250 ML IV SCH (12:00)
[2021-02-06] MEDS: MORPHINE 2 MG/1 ML SYRINGE IV PRN (20:23)
[2021-02-07 01:15] LABS: Hematocrit 28.4 VOL% (42.0-52.0); Hemoglobin 9.5 GM/DL (14.0-18.0); Immature Granulocytes % 12.2 %; Immature Granulocytes Absolute 0.09 #; Lymphocytes % 2.7 % (21.2-54.2); Mean Corpuscular HGB Conc 33.5 GM/DL (32-36); Mean Corpuscular Volume 84.5 FL (87-102); Monocytes % 5.4 % (1.7-12.7); Neutrophils % 79.7 % (38.7-73.9); Red Blood Count 3.36 MC/CUMM (3.8-5.5); Red Cell Distribution Width 17.1 % (9.3-17.3)
[2021-02-07 01:19] LABS: Platelet Count 28 T/CUMM (130-400); White Blood Count 0.7 T/CUMM (4-12)
[2021-02-07 01:32] LABS: Calcium 7.8 MG/DL (8.5-10.1); Osmolality,Calculated 297.7 MOS/KG (273-304); Potassium 4.5 MMOL/L (3.5-5.1)
[2021-02-07 02:02] LABS: Band Neutrophils 8 % (0-10); Lymphocytes 2 % (20-55); Metamyelocytes 3 %; Platelet Estimate Decreased; Segmented Neutrophils 83 % (50-85); Total Cells Counted 100
[2021-02-07 02:03] LABS: Hypochromasia Slight; Microcytosis Slight; Ovalocytes Few
[2021-02-07] MEDS: ALBUTEROL/IPRATROPIUM 3 ML NEB RESP TX SCH ×7 (02:48→23:39)
[2021-02-07] MEDS: methylPREDNISolone SOD SUC 40 MG/1 ML VIAL IV SCH ×4 (03:43→22:31)
[2021-02-07] MEDS: CEFTAROLINE 300 MG in SODIUM CHLORIDE 0.9% 100 ML IV SCH (03:43)
[2021-02-07] MEDS: FAMOTIDINE 20 MG/2 ML VIAL IV SCH ×2 (03:43→12:32)
[2021-02-07] MEDS: FINASTERIDE 5 MG TABLET PO SCH (08:14)
[2021-02-07] MEDS: POTASSIUM CHLORIDE 10 MEQ TABLET PO SCH (08:14)
[2021-02-07] MEDS: FLUCONAZOLE 100 MG TABLET PO SCH (08:14)
[2021-02-07] MEDS: carvediloL 3.125 MG TABLET PO SCH ×2 (08:14→16:44)
[2021-02-07] MEDS: amLODIPine 5 MG TABLET PO SCH (08:14)
[2021-02-07] MEDS: FUROSEMIDE 80 MG TABLET PO SCH (08:14)
[2021-02-07] MEDS: LEVOTHYROXINE 50 MCG TABLET PO SCH (08:14)
[2021-02-07] MEDS: POLYETHYLENE GLYCOL POWDER 17 GM PACK PO SCH (08:14)
[2021-02-07] MEDS: DOCUSATE SODIUM 100 MG/10 ML UDCUP PO SCH ×2 (08:14→21:40)
[2021-02-07] MEDS: ACETAMINOPHEN 325 MG TABLET PO PRN ×2 (14:32→19:40)
[2021-02-08] MEDS: FAMOTIDINE 20 MG/2 ML VIAL IV SCH (00:40)
[2021-02-08] MEDS: ALBUTEROL/IPRATROPIUM 3 ML NEB RESP TX SCH ×6 (03:16→23:18)
[2021-02-08 05:01] LABS: Antinuclear Ab, S 0.2 U
[2021-02-08] MEDS: methylPREDNISolone SOD SUC 40 MG/1 ML VIAL IV SCH ×3 (05:02→21:06)
[2021-02-08 06:41] LABS: Hematocrit 29.3 VOL% (42.0-52.0); Hemoglobin 9.8 GM/DL (14.0-18.0); Immature Granulocytes % 1.3 %; Immature Granulocytes Absolute 0.01 #; Lymphocytes % 3.8 % (21.2-54.2); Mean Corpuscular HGB Conc 33.4 GM/DL (32-36); Mean Corpuscular Volume 84.9 FL (87-102); Monocytes % 3.8 % (1.7-12.7); Neutrophils % 91.1 % (38.7-73.9); Red Blood Count 3.45 MC/CUMM (3.8-5.5); Red Cell Distribution Width 17.2 % (9.3-17.3)
[2021-02-08 06:49] LABS: Platelet Count 14 T/CUMM (130-400); White Blood Count 0.8 T/CUMM (4-12)
[2021-02-08 07:04] LABS: Band Neutrophils 1 % (0-10); Hypochromasia 1+; Lymphocytes 2 % (20-55); Microcytosis 1+; Ovalocytes Slight; Platelet Estimate Decreased; Segmented Neutrophils 94 % (50-85); Total Cells Counted 100
[2021-02-08 07:05] LABS: Calcium 7.8 MG/DL (8.5-10.1); Osmolality,Calculated 304.7 MOS/KG (273-304); Potassium 4.7 MMOL/L (3.5-5.1)
[2021-02-08] MEDS ORDERED: SODIUM CHLORIDE 0.9% 1,000 ML IV PRN (07:14)
[2021-02-08] MEDS: carvediloL 3.125 MG TABLET PO SCH ×2 (09:37→17:07)
[2021-02-08] MEDS: amLODIPine 5 MG TABLET PO SCH (09:38)
[2021-02-08] MEDS: FUROSEMIDE 80 MG TABLET PO SCH (09:38)
[2021-02-08] MEDS: POTASSIUM CHLORIDE 10 MEQ TABLET PO SCH (09:38)
[2021-02-08] MEDS: FINASTERIDE 5 MG TABLET PO SCH (09:38)
[2021-02-08] MEDS: LEVOTHYROXINE 50 MCG TABLET PO SCH (09:38)
[2021-02-08] MEDS: FLUCONAZOLE 100 MG TABLET PO SCH (09:39)
[2021-02-08] MEDS: POLYETHYLENE GLYCOL POWDER 17 GM PACK PO SCH (09:39)
[2021-02-08] MEDS: DOCUSATE SODIUM 100 MG/10 ML UDCUP PO SCH ×2 (09:39→21:06)
[2021-02-08] MEDS: FILGRASTIM-SNDZ 300 MCG/0.5 ML SYRINGE SUBCUT SCH (13:53)
[2021-02-08] MEDS: ACETAMINOPHEN 325 MG TABLET PO PRN (19:44)
[2021-02-08] MEDS: FAMOTIDINE 20 MG TABLET PO SCH (21:06)
[2021-02-09] MEDS: ALBUTEROL/IPRATROPIUM 3 ML NEB RESP TX SCH ×6 (03:15→23:00)
[2021-02-09 05:10] LABS: Hemoglobin 9.3 GM/DL (14.0-18.0); Immature Granulocytes % 1.5 %; Immature Granulocytes Absolute 0.02 #; Lymphocytes % 2.3 % (21.2-54.2); Mean Corpuscular HGB Conc 33.2 GM/DL (32-36); Mean Corpuscular Volume 84.6 FL (87-102); Monocytes % 3.8 % (1.7-12.7); Neutrophils % 92.4 % (38.7-73.9); Red Blood Count 3.31 MC/CUMM (3.8-5.5); Red Cell Distribution Width 17.2 % (9.3-17.3)
[2021-02-09 05:14] LABS: White Blood Count 1.3 T/CUMM (4-12)
[2021-02-09 05:15] LABS: Platelet Count 12 T/CUMM (130-400)
[2021-02-09 05:42] LABS: Albumin 1.9 G/DL (3.4-5.0); Bilirubin,Total 1.2 MG/DL (0.20-1.00); Calcium 7.8 MG/DL (8.5-10.1); Osmolality,Calculated 307.5 MOS/KG (273-304); Total Protein 4.6 G/DL (6.4-8.2)
[2021-02-09 05:43] LABS: Band Neutrophils 1 % (0-10); Hypochromasia 1+; Lymphocytes 2 % (20-55); Microcytosis 1+; Ovalocytes Slight; Platelet Estimate Decreased; Segmented Neutrophils 95 % (50-85); Total Cells Counted 100
[2021-02-09] MEDS: DOCUSATE SODIUM 100 MG/10 ML UDCUP PO SCH ×2 (09:21→21:37)
[2021-02-09] MEDS: carvediloL 3.125 MG TABLET PO SCH ×2 (09:22→16:48)
[2021-02-09] MEDS: POTASSIUM CHLORIDE 10 MEQ TABLET PO SCH (09:22)
[2021-02-09] MEDS: FAMOTIDINE 20 MG TABLET PO SCH ×2 (09:22→21:37)
[2021-02-09] MEDS: POLYETHYLENE GLYCOL POWDER 17 GM PACK PO SCH (09:22)
[2021-02-09] MEDS: FLUCONAZOLE 100 MG TABLET PO SCH (09:22)
[2021-02-09] MEDS: LEVOTHYROXINE 50 MCG TABLET PO SCH (09:22)
[2021-02-09] MEDS: FINASTERIDE 5 MG TABLET PO SCH (09:22)
[2021-02-09] MEDS: FUROSEMIDE 80 MG TABLET PO SCH (09:22)
[2021-02-09] MEDS: methylPREDNISolone SOD SUC 40 MG/1 ML VIAL IV SCH ×2 (09:23→21:35)
[2021-02-09] MEDS ORDERED: SODIUM CHLORIDE 0.9% 1,000 ML IV PRN (09:29)
[2021-02-09] MEDS: FILGRASTIM-SNDZ 300 MCG/0.5 ML SYRINGE SUBCUT SCH (09:36)
[2021-02-09] MEDS ORDERED: ALBUMIN 25% 25 GM/100 ML VIAL IV ONE (10:00)
[2021-02-10] MEDS: ALBUTEROL/IPRATROPIUM 3 ML NEB RESP TX SCH ×6 (03:00→23:30)
[2021-02-10 05:27] LABS: Hematocrit 28.6 VOL% (42.0-52.0); Hemoglobin 9.3 GM/DL (14.0-18.0); Immature Granulocytes % 0.5 %; Immature Granulocytes Absolute 0.01 #; Lymphocytes # 0.1 10*3/uL (1.4-4.0); Lymphocytes % 3.2 % (21.2-54.2); Mean Corpuscular HGB Conc 32.5 GM/DL (32-36); Mean Corpuscular Volume 84.9 FL (87-102); Monocytes % 2.7 % (1.7-12.7); Neutrophils % 93.6 % (38.7-73.9); Red Blood Count 3.37 MC/CUMM (3.8-5.5); Red Cell Distribution Width 17.4 % (9.3-17.3); White Blood Count 1.9 T/CUMM (4-12)
[2021-02-10 05:34] LABS: Platelet Count 11 T/CUMM (130-400)
[2021-02-10 05:51] LABS: Albumin 2.3 G/DL (3.4-5.0); Bilirubin,Total 0.9 MG/DL (0.20-1.00); Calcium 8.1 MG/DL (8.5-10.1); Osmolality,Calculated 317.4 MOS/KG (273-304); Potassium 5.4 MMOL/L (3.5-5.1); Total Protein 4.9 G/DL (6.4-8.2)
[2021-02-10 06:07] LABS: Band Neutrophils 9 % (0-10); Hypochromasia 1+; Lymphocytes 3 % (20-55); Segmented Neutrophils 86 % (50-85); Total Cells Counted 100
[2021-02-10 06:08] LABS: Microcytosis 1+; Ovalocytes Few; Platelet Estimate Decreased
[2021-02-10] MEDS: DOCUSATE SODIUM 100 MG/10 ML UDCUP PO SCH ×3 (08:20→21:14)
[2021-02-10] MEDS: carvediloL 3.125 MG TABLET PO SCH ×3 (08:20→16:46)
[2021-02-10] MEDS: POLYETHYLENE GLYCOL POWDER 17 GM PACK PO SCH (08:20)
[2021-02-10] MEDS: methylPREDNISolone SOD SUC 40 MG/1 ML VIAL IV SCH ×2 (08:20→21:04)
[2021-02-10] MEDS: POTASSIUM CHLORIDE 10 MEQ TABLET PO SCH (08:21)
[2021-02-10] MEDS: FLUCONAZOLE 100 MG TABLET PO SCH (08:21)
[2021-02-10] MEDS: FAMOTIDINE 20 MG TABLET PO SCH ×2 (08:21→21:16)
[2021-02-10] MEDS: FINASTERIDE 5 MG TABLET PO SCH (08:21)
[2021-02-10] MEDS: ERGOCALCIFEROL 50,000 UNIT CAPSULE PO SCH (08:21)
[2021-02-10] MEDS: LEVOTHYROXINE 50 MCG TABLET PO SCH (08:21)
[2021-02-10] MEDS: FILGRASTIM-SNDZ 300 MCG/0.5 ML SYRINGE SUBCUT SCH (08:21)
[2021-02-10] MEDS: FUROSEMIDE 80 MG TABLET PO SCH (08:21)
[2021-02-10] MEDS: ACETAMINOPHEN 325 MG TABLET PO PRN (08:24)
[2021-02-10] MEDS ORDERED: SODIUM POLYSTYRENE SULFATE 15 GM/60 ML BOTTLE PO ONE (08:34)
[2021-02-10] MEDS: INSULIN LISPRO 100 UNIT/ML SUBCUT SCH ×2 (16:22→21:15)
[2021-02-10] MEDS ORDERED: ACETAMINOPHEN 650 MG SUPP RECTAL ONE (20:59)
[2021-02-10] MEDS: ACETAMINOPHEN 650 MG SUPP RECTAL PRN (21:05)
[2021-02-11] MEDS ORDERED: LORazepam 2 MG/1 ML VIAL IV PRN
[2021-02-11] MEDS ORDERED: MORPHINE 2 MG/1 ML SYRINGE IV PRN
[2021-02-11] MEDS: ACETAMINOPHEN 650 MG SUPP RECTAL PRN (00:27)
[2021-02-11 01:16] VITALS: BP 92/45
[2021-02-11] MEDS: ALBUTEROL/IPRATROPIUM 3 ML NEB RESP TX SCH (03:00)
== END 2021-02-11 03:00 | disposition expired | DRG 432 ==
LOC: N.ED 03:41 → SUATTDRO 08:28 → N.EDINP 08:28 → N.5E 09:11
PROVIDERS: ADMIT Internal Medicine; ATTEND Internal Medicine